=== PATIENT | female | born 1975 | race African-American/Black ===

== ENCOUNTER 2019-09-29 19:43 | Emergency (ER) | payer SELFPAY ==
--- NOTE | 2019-09-29 20:47 | RAD ---
RADIOGRAPH CHEST 1 VIEW: DATE: 09/29/2019 HISTORY: 43-year-old female with cough and dyspnea FINDINGS: The visualized lung river are clear. The cardiomediastinal silhouette and hilar shadows are normal. The lateral costophrenic angles are sharp. The osseous structures appear normal. There is no pneumothorax. IMPRESSION: Negative.
== END 2019-09-29 21:08 | disposition home or self-care (01) ==
LOC: ERS 19:43
DX: R05 Cough (principal); F41.9 Anxiety disorder, unspecified; F32.9 Major depressive disorder, single episode, unspecified; F17.210 Nicotine dependence, cigarettes, uncomplicated
CPT/HCPCS: 71045

== ENCOUNTER 2019-10-03 00:19 | Emergency (ER) | payer SELFPAY ==
[2019-10-03] MEDS ORDERED: Ondansetron ODT 4 MG TAB ONE (00:28)
[2019-10-03 01:14] LABS: #Basophils 0.1 thou/uL (0.0-0.2); #Monocytes 0.6 thou/uL (0.11-0.59); #Neutrophils 4.5 thou/uL (1.40-6.50); %Basophils 1.2 % (0.0-1.0); %Eosinophils 0.5 % (0.0-10.0); %Lymphocytes 27.9 % (21.0-51.0); %Monocytes 7.8 % (0.0-10.0); %Neutrophils 62.7 % (42.0-75.0); Hemoglobin 14.4 g/dL (12.0-16.0); Mean Corpuscular HGB CONC 33.3 g/dL (32.0-36.0); Mean Corpuscular Hemoglobin 30.7 pg (27.0-31.0); Mean Corpuscular Volume 92.1 fL (78.0-98.0); Mean Platelet Volume 8.7 fL (7.4-10.4); Platelet Count 219 thou/uL (130-400); RBC Distribution Width 12.3 % (11.5-14.5); Red Blood Cell (RBC) Count 4.68 mill/uL (4.20-5.40); White Blood Cell (WBC) Count 7.1 thou/uL (4.8-10.8)
[2019-10-03] MEDS ORDERED: Dicyclomine 20 MG TAB ONE (01:25)
[2019-10-03 01:36] LABS: ALT (SGPT) 15 U/L (8-55); AST (SGOT) 26 U/L (5-34); Albumin 3.5 g/dL (3.5-5.0); Alkaline Phosphatase 58 U/L (40-110); Anion Gap 18 mmol/L (10-20); BUN (Urea Nitrogen) 8 mg/dL (7.0-18.7); Bilirubin, Total 0.4 mg/dL (0.2-1.2); Calc. Creatinine Clearance 0 mL/min (70-130); Calcium 9.4 mg/dL (7.8-10.44); Carbon Dioxide 16 mmol/L (22-29); Chloride 107 mmol/L (98-107); Estimated GFR-MDRD Greater than 90; Globulin 4.3 g/dL (2.4-3.5); Glucose 91 mg/dL (70-105); Lipase 14 U/L (8-78); Potassium 3.1 mmol/L (3.5-5.1); Protein, Total 7.8 g/dL (6.0-8.3); Sodium 138 mmol/L (136-145)
[2019-10-03 01:37] LABS: BHCG - Serum Negative (NEGATIVE); Pregs Control Background? CLEAR/WHITE (CLR/WHITE); Pregs Control Bar Appear? YES (CONTROL BAR)
[2019-10-03 02:05] LABS: Bilirubin Negative (Negative); Blood, Urine 1+ (Negative); Clarity Turbid (Clear); Glucose, Urine (Dipstick) Normal (Negative); Leukocyte 75 Leu/uL (Negative); Nitrite Negative (Negative); Protein, Urine (Dipstick) 70 mg/dL (Neg-Trace); Urobilinogen Normal mg/dL (Less than 2); WBC/HPF Greater than 50 HPF (0-3)
[2019-10-03 02:06] LABS: Bacteria/HPF 1+ HPF (None Seen)
--- NOTE | 2019-10-03 09:19 | RAD ---
CHEST ONE VIEW ABDOMEN TWO VIEWS/ABDOMINAL SURVEY: INDICATIONS: Abdominal pain. TECHNIQUE: Upright chest and supine upright views of the abdomen are obtained. FINDINGS: The lungs are clear on the upright chest exam. There is prominent stool throughout the colon on the abdominal films. No free air or mass effect. Sma ll bowel gas pattern is unremarkable. IMPRESSION: Prominent stool throughout the colon. Bowel gas pattern is otherwise unremarkable. POS: AGW
== END 2019-10-03 02:18 | disposition home or self-care (01) ==
LOC: ERS 00:19
DX: K59.00 Constipation, unspecified (principal); F41.9 Anxiety disorder, unspecified; F32.9 Major depressive disorder, single episode, unspecified; F17.210 Nicotine dependence, cigarettes, uncomplicated; Z79.899 Other long term (current) drug therapy
CPT/HCPCS: 36415; 74022; 80053; 81003; 81015; 83690; 84703; 85025; Q0162